=== PATIENT | female | born 1970 | race Caucasian/White ===

== ENCOUNTER 2018-12-22 11:32 | Emergency (ER) | payer MEDICAID, OTHER ==
[2018-12-22] MEDS ORDERED: PROCHLORPERAZINE 10 MG INJ IV (14:15)
[2018-12-22] MEDS: DIPHENHYDRAMINE 50 MG INJ IV (14:39)
[2018-12-22] MEDS: SOD CHLORIDE 0.9% 1,000 ML IV (14:39)
[2018-12-22] MEDS: KETOROLAC 30 MG INJ IV (14:40)
[2018-12-22] MEDS: PROCHLORPERAZINE 10 MG INJ IV (15:03)
== END 2018-12-22 15:55 | disposition home or self-care (01) ==
LOC: FTE 11:32
DX: G43.909 Migraine, unspecified, not intractable, without status migrainosus (principal)
CPT/HCPCS: 81025; 96361; 96374; 96375; 99284-25